=== PATIENT | female | born 1995 | race Native Hawaiian/Other Pacific Islander ===

== ENCOUNTER 2021-09-27 12:39 | Emergency (ER) | payer OTHER ==
[~2021-09-27] VITALS: Ht 152.4 cm; Wt 75.8 kg
[2021-09-27 12:47] VITALS: TEMP 97
[2021-09-27 13:30] VITALS: BP 128/71
== END 2021-09-27 13:30 | disposition home or self-care (01) ==
LOC: ED 12:39
DX: J06.9 Acute upper respiratory infection, unspecified (principal); Z20.822 Contact with and (suspected) exposure to COVID-19
CPT/HCPCS: 87502; 87635; 87651; 99283; U0003

== ENCOUNTER 2021-11-10 06:19 | Emergency (ER) | payer OTHER ==
[~2021-11-10] VITALS: Ht 152.4 cm; Wt 78.5 kg
[2021-11-10 06:32] VITALS: TEMP 98.1
[2021-11-10 07:13] VITALS: BP 123/77
== END 2021-11-10 07:14 | disposition home or self-care (01) ==
LOC: ED 06:19
DX: R30.0 Dysuria (principal)
CPT/HCPCS: 81002; 81025; 99282

== ENCOUNTER 2021-12-03 14:49 | Emergency (ER) | payer OTHER ==
[~2021-12-03] VITALS: Ht 152.4 cm; Wt 78.5 kg
[2021-12-03 14:56] VITALS: TEMP 96.9
[2021-12-03] MEDS ORDERED: PRED20TA27 PO (15:50)
[2021-12-03 15:55] VITALS: BP 136/78
== END 2021-12-03 16:01 | disposition home or self-care (01) ==
LOC: ED 14:49
DX: R21 Rash and other nonspecific skin eruption (principal)
CPT/HCPCS: 99282

== ENCOUNTER 2022-02-13 13:22 | Emergency (ER) | payer OTHER ==
[~2022-02-13] VITALS: Ht 152.4 cm; Wt 78.5 kg
[~2022-02-13 13:22] MED LIST: PRED20TA27 PO
[2022-02-13 14:33] VITALS: BP 130/84; TEMP 98.6
== END 2022-02-13 14:33 | disposition home or self-care (01) ==
LOC: ED 13:22
DX: B34.9 Viral infection, unspecified (principal); R11.2 Nausea with vomiting, unspecified; R19.7 Diarrhea, unspecified
CPT/HCPCS: 87502; 87651; 99283

== ENCOUNTER 2022-11-19 17:58 | Emergency (ER) | payer OTHER ==
[~2022-11-19] VITALS: Ht 152.4 cm; Wt 83.9 kg
[2022-11-19 18:42] LABS: PLATELET COUNT 205 K/uL (152-353)
[2022-11-19 18:47] LABS: POTASSIUM 3.8 mmol/L (3.6-5.2)
[2022-11-19 20:15] VITALS: BP 116/80; TEMP 98.2
== END 2022-11-19 20:15 | disposition home or self-care (01) ==
LOC: ED 17:58
PROVIDERS: Family Medicine
DX: R07.89 Other chest pain (principal); F41.9 Anxiety disorder, unspecified
CPT/HCPCS: 80053; 81025; 82550; 84484; 85027; 93005; 99283